=== PATIENT | female | born 1965 | race Two or more races ===

== ENCOUNTER 2019-01-19 08:00 | Outpatient (CLI) | payer OTHER | END 2019-01-19 12:00 | disposition home or self-care (01) | LOC: D.MAMMO 08:00 | PROVIDERS: ATTEND Family Medicine | DX: Z12.31 Encounter for screening mammogram for malignant neoplasm of breast (principal) ==

== ENCOUNTER → 2020-01-21 13:11 | Outpatient (CLI) | payer OTHER | END | disposition home or self-care (01) | LOC: D.NM 13:00 | PROVIDERS: ATTEND Family Medicine | DX: R10.11 Right upper quadrant pain (principal) ==